=== PATIENT | female | born 1995 | race Caucasian/White ===

== ENCOUNTER 2019-01-06 22:27 | Emergency (ER) | payer OTHER ==
[~2019-01-06] VITALS: Ht 157.5 cm; Wt 59.0 kg
== END 2019-01-07 22:23 | disposition home or self-care (01) ==
LOC: ER 22:27
DX: N92.0 Excessive and frequent menstruation with regular cycle (principal); D64.89 Other specified anemias; N83.291 Other ovarian cyst, right side; R10.2 Pelvic and perineal pain
CPT/HCPCS: 76830; 36430; 86904; 86922; P9021